=== PATIENT | female | born 1950 | race Caucasian/White ===

== ENCOUNTER 2018-02-22 07:00 | Emergency (ER) | payer BC ==
[~2018-02-22] VITALS: Ht 160 cm; Wt 76.2 kg
[2018-02-22] MEDS ORDERED: CEFTRIAXONE SOD 1 GM VIAL IM ONE (07:30)
--- NOTE | 2018-02-22 14:43 | NUR ---
urine collected into guo tube and bagged/labled for urine cx. into fridge;
== END 2018-02-22 07:41 | disposition home or self-care (01) ==
LOC: FSED 07:00
DX: R30.0 Dysuria (principal); N30.01 Acute cystitis with hematuria
CPT/HCPCS: 81003; 87086; 99284; J0696